=== PATIENT | male | born 1985 ===

== ENCOUNTER 2018-08-19 00:12 | Emergency (ER) | payer OTHER ==
--- NOTE | 2018-08-19 00:26 | ED PDOC ---
Arrival/HPI - General Historian: Patient, EMS - History of Present Illness Narrative History of Present Illness (Text): 08/19/18 00:49 33 y/o male with unknown PMH presents to the ED via ambulance after being found unconscious on the street. Per EMS, pt states he recently broke up with his significant other and drank beer and a full bottle of tequila tonight. Pt is unknown to this ED. ROS limited secondary to pt's AMS from presumed intoxication. <Jessica Goldberg - Last Filed: 08/19/18 02:04> <John Altamirano - Last Filed: 08/19/18 05:30> - General Time Seen by Provider: 08/19/18 00:23 Past Medical History - Provider Review Nursing Documentation Reviewed: Yes <Jessica Goldberg - Last Filed: 08/19/18 02:04> Family/Social History - Physician Review Nursing Documentation Reviewed: Yes Family/Social History: No Known Family HX <Jessica Goldberg - Last Filed: 08/19/18 02:04> Allergies/Home Meds <Jessica Goldberg - Last Filed: 08/19/18 02:04> <John Altamirano - Last Filed: 08/19/18 05:30> Allergies/Adverse Reactions: Allergies No Known Allergies Allergy (Verified 08/19/18 00:28) Home Medications: Home Meds Medication Instructions Recorded Confirmed Unobtainable 08/19/18 08/19/18 Review of Systems - Physician Review All systems were reviewed & negative as marked: Yes - Review of Systems Systems not reviewed;Unavailable: Intoxicated <Jessica Goldberg - Last Filed: 08/19/18 02:04> Physical Exam - Physical Exam Physical Exam Limitations: Intoxication Vital Signs Reviewed: Yes Temperature: Afebrile Blood Pressure: Normal Pulse: Regular Respiratory Rate: Normal Appearance: Positive for: Non-Toxic, Unkept, Other (Intoxicated) Mental Status: Positive for: other (Intoxicated) - Systems Exam Head: Present: Normocephalic, Laceration (0.5cm, horizontal, bridge of nose) Pupils: Present: PERRL Extroacular Muscles: Present: EOMI Conjunctiva: Present: Normal Ears: Present: Normal. No: Other (hemotypanum) Mouth: Present: Moist Mucous Membranes, Normal Tounge. No: Normal Lips (swollen lower lip, no laceration) Nose (External): Present: Laceration Nose (Internal): Present: No Active Bleeding, Other (Large amount of dried blood inside both nares and around mouth) Neck: Present: Normal Range of Motion Respiratory/Chest: Present: Clear to Auscultation, Good Air Exchange. No: Respiratory Distress, Accessory Muscle Use Cardiovascular: Present: Regular Rate and Rhythm, Normal S1, S2. No: Murmurs Back: Present: Normal Inspection Upper Extremity: Present: Normal Inspection, Normal ROM, NORMAL PULSES Lower Extremity: Present: Normal Inspection, NORMAL PULSES, Normal ROM Neurological: Present: Motor Func Grossly Intact Skin: Present: Warm, Dry, Normal Color, Laceration (bridge of nose). No: Rashes Psychiatric: Present: Intoxicated <Jessica Goldberg - Last Filed: 08/19/18 02:04> Vital Signs Temp Pulse Resp BP Pulse Ox 08/19/18 00:23 97.9 F 75 16 128/76 99 <John Altamirano - Last Filed: 08/19/18 05:30> Medical Decision Making ED Course and Treatment: 08/19/18 00:23 Initial Plan: * Head CT * Cervical Spine CT * Maxillofacial CT * CBC, CMP, Alcohol Level * Salicylate, Acetaminophen * UDS * EKG * CXR * PES eval once medically cleared 08/19/18 02:08 Will endorse pt to Dr. Altamirano, pending EKG, CXR, UDS, CT scans, PES lamont luation. Pt made aware of change of provider. Pt currently sleeping in stretcher soundly, stable. - Transfer of Care Patient signed out to :Sedrick Altamirano Pending Labs:: UDS, CXR, EKG Pending Radiology Studies:: CT Head, CT Cervical Spine, CT Maxillofacial Other: Possible PES Evaluation <Jessica Goldberg - Last Filed: 08/19/18 02:04> ED Course and Treatment: 08/19/18 04:33 Reviewed radiology, Chest X-ray shows no acute processes. CT Head: Normal size of the ventricles and extra-axial spaces for the patient's age. Normal white matter tracts of the supratentorial brain. Normal basal ganglia and thalami. Normal brainstem. Normal cerebellum. There is no demonstrated extra-axial, intraparenchymal, or intraventricular hemorrhage. There are no findings of an acute ischemic infarction. Normal calvarium. There is no demonstrated fracture. Normal soft tissue structures. Mild chronic mucosal inflammatory changes of the maxillary sinuses and ethmoid air cells. Normal remaining visualized paranasal sinuses. Mild right mastoid effusion. IMPRESSION: Normal unenhanced CT scan of the brain. Mild chronic mucosal inflammatory changes of the maxillary sinuses and ethmoid air cells. Mild right mastoid effusion. Electronically signed on Aug 19, 2018 4:26:31 AM EST by: Jules Bates M.D., Certified by ABR, MSK, Neuroradiology CT Maxillofacial: Acute displaced fractures of the nasal bones. Overlying soft tissue edema and swelling. Normal bilateral orbital contents. Normal bilateral medial and inferior orbital calvin. Normal bilateral maxillary bones. Normal bilateral maxillary sinuses. Normal bilateral frontozygomatic arches. Normal bilateral zygomatic temporal arches. Mild chronic mucosal inflammatory changes of the maxillary sinuses and ethmoid air cells. Mild right mastoid effusion. Impression: Acute displaced fractures of the nasal bones. Thank you for your kind referral of this patient. Electronically signed on Aug 19, 2018 4:29:32 AM EST by: Jules Bates M.D., Certified by ABR, MSK, Neuroradiology CT Cervical Spine: Normal craniovertebral junction. Normal anterior atlantoaxial articulation. Normal odontoid process. Normal cervical lordosis. Normal vertebral bodies and posterior osseous elements. C2-3: Normal endplates. Normal disc height and morphology. Normal bilateral uncovertebral and apophyseal joints. Normal central canal and intervertebral neuroforamina. C3-4: Normal endplates. Normal disc height and morphology. Normal bilateral uncovertebral and apophyseal joints. Normal central canal and intervertebral neuroforamina. C4-5: Normal endplates. Normal disc height and morphology. Normal bilateral uncovertebral and apophyseal joints. Normal central canal and intervertebral neuroforamina. C5-6: Normal endplates. Normal disc height and morphology. Normal bilateral uncovertebral and apophyseal joints. Normal central canal and intervertebral neuroforamina. C6-7: Normal endplates. Normal disc height and morphology. Normal bilateral uncovertebral and apophyseal joints. Normal central canal and intervertebral neuroforamina. C7-T1: Normal endplates. Normal disc height and morphology. Normal bilateral uncovertebral and apophyseal joints. Normal central canal and intervertebral neuroforamina. Normal visualized soft tissue structures. IMPRESSION: Normal unenhanced CT examination of the cervical spine. Electronically signed on Aug 19, 2018 4:30:46 AM EST by: Jules Bates M.D., Certified by ABR, MSK, Neuroradiology 08/19/18 07:00 Case endorsed to /pending sobriety/reassess/final disposition - Lab Interpretations Lab Results: 08/19/18 00:55 08/19/18 00:55 Lab Results 08/19/18 00:55: Alcohol, Quantitative 408 H* 08/19/18 00:55: Salicylates < 1 L, Acetaminophen < 10.0 L 08/19/18 00:55: Sodium 138, Potassium 3.4 L, Chloride 97 L, Carbon Dioxide 27, Anion Gap 18, BUN 3 L, Creatinine 0.6 L, Est GFR ( Amer) > 60, Est GFR (Non-Af Amer) > 60, Random Glucose 124 H, Calcium 9.1, Total Bilirubin 0.7, AST 100 H, ALT 81 H, Alkaline Phosphatase 85, Total Protein 7.6, Albumin 4.5, Globulin 3.0, Albumin/Globulin Ratio 1.5 08/19/18 00:55: WBC 8.5, RBC 5.06, Hgb 15.2, Hct 43.3, MCV 85.6, MCH 30.0, MCHC 35.1, RDW 12.8, Plt Count 309, MPV 9.6, Gran % 72.7 H, Lymph % (Auto) 16.9 L, [place] % (Auto) 9.4 H, Eos % (Auto) 0.4 L, Baso % (Auto) 0.6, Gran # 6.17, Lymph # (Auto) 1.4, [place] # (Auto) 0.8 H, Eos # (Auto) 0.0, Baso # (Auto) 0.05 - RAD Interpretation Radiology Orders: 08/19/18 00:32 CERVICAL SPINE W/O CONTRAST [CT] Stat HEAD W/O CONTRAST [CT] Stat MAXILLOFACIAL W/O CONTRAST [CT] Stat 08/19/18 02:04 CHEST ONE VIEW [RAD] Stat News Operations Manager: ED Physician, Radiologist - EKG Interpretation Interpreted by ED Physician: Yes Type: 12 lead EKG <John Altamirano - Last Filed: 08/19/18 05:30> - PA / FRONT DESK HOST / Resident Statement / has reviewed & agrees with the documentation as recorded. / has examined the patient and agrees with the treatment plan. <John Altamirano - Last Filed: 08/19/18 05:30> Disposition/Present on Arrival - Present on Arrival Any Indicators Present on Arrival: No History of DVT/PE: No History of Uncontrolled Diabetes: No Urinary Catheter: No History of Decub. Ulcer: No - Disposition Have Diagnosis and Disposition been Completed?: No Disposition Time: 02:00 <Jessica Goldberg - Last Filed: 08/19/18 02:04> - Present on Arrival Any Indicators Present on Arrival: No - Disposition Have Diagnosis and Disposition been Completed?: No Disposition Time: 07:00 <John Altamirano - Last Filed: 08/19/18 05:30> - Disposition Diagnosis: Alcohol intoxication, Nasal fracture Patient Problems: Current Active Problems Problem Status Onset Alcohol intoxication Acute Nasal fracture Acute Condition: STABLE
[2018-08-19 01:13] LABS: BASO # 0.05 K/mm3 (0.0-2.0); BASO % 0.6 % (0.0-3.0); EOS % 0.4 % (1.5-5.0); GRAN # 6.17 (1.4-6.5); GRAN % 72.7 % (50.0-68.0); HEMOGLOBIN 15.2 g/dL (14.0-18.0); LYMPH # 1.4 (1.2-3.4); LYMPH % 16.9 % (22.0-35.0); MEAN CELL VOLUME 85.6 fl (80.0-105.0); MEAN CORPUSCULAR HGB CONC 35.1 g/dl (31.0-37.0); MEAN PLATELET VOLUME 9.6 fl (7.0-11.0); MONO # 0.8 (0.1-0.6); MONO % 9.4 % (1.0-6.0); RBC 5.06 10^6/uL (3.5-6.1); RED CELL DISTRIBUTION WIDTH 12.8 % (11.5-14.5); WHITE BLOOD COUNT 8.5 10^3/uL (4.5-11.0)
[2018-08-19 01:25] LABS: ACETAMINOPHEN < 10.0 ug/ml (10.0-20.0); SALICYLATE < 1 mg/dL (2.0-20.0)
[2018-08-19 01:26] LABS: ALB/GLOB RATIO 1.5 (1.1-1.8); ALBUMIN 4.5 g/dL (3.0-4.8); ALT/SGPT 81 U/L (7-56); AST/SGOT 100 U/L (17-59); BLOOD UREA NITROGEN 3 mg/dL (7-21); CALCIUM 9.1 mg/dL (8.4-10.5); GFR NON-AFRICAN AMERICAN > 60
[2018-08-19 05:30] VITALS: RESP 18
--- NOTE | 2018-08-19 09:15 | CT ---
Date of service: 08/19/2018 PROCEDURE: CT HEAD WITHOUT CONTRAST. HISTORY: headache COMPARISON: None available. TECHNIQUE: Axial computed tomography images were obtained through the head/brain without intravenous contrast. Radiation dose: Total exam DLP = 930.76 mGy-cm. This CT exam was performed using one or more of the following dose reduction techniques: Automated exposure control, adjustment of the mA and/or kV according to patient size, and/or use of iterative reconstruction technique. FINDINGS: HEMORRHAGE: No intracranial hemorrhage. BRAIN: No mass effect or edema. No atrophy or chronic microvascular ischemic changes. VENTRICLES: Unremarkable. No hydrocephalus. CALVARIUM: Unremarkable. PARANASAL SINUSES: Unremarkable as visualized. No significant inflammatory changes. MASTOID AIR CELLS: Bony sclerosis and opacification of mastoid air cells on the right consistent with chronic mastoiditis OTHER FINDINGS: The report concurs with the preliminary [facility] report IMPRESSION: No acute intracranial findings. Bony sclerosis and opacification of mastoid air cells on the right consistent with chronic mastoiditis
--- NOTE | 2018-08-19 09:31 | CT ---
Date of service: 08/19/2018 PROCEDURE: CT MAXILLOFACIAL BONES WITHOUT CONTRAST HISTORY: facial injury COMPARISON: None available. TECHNIQUE: Contiguous axial CT images of the maxillofacial bones were obtained. Coronal and sagittal reformats were generated. Radiation dose: Total exam DLP = 816.99 mGy-cm. This CT exam was performed using one or more of the following dose reduction techniques: Automated exposure control, adjustment of the mA and/or kV according to patient size, and/or use of iterative reconstruction technique. FINDINGS: NASAL BONES: Minimally displaced fractures of the nasal bones ORBITS: Unremarkable. PARANASAL SINUSES/ MASTOIDS: Clear. MAXILLA: Unremarkable. MANDIBLE/ TEMPOROMANDIBULAR JOINTS: Unremarkable. SKULL BASE: Unremarkable. TEMPORAL BONES: Middle ears and mastoid grossly unremarkable. 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
--- NOTE | 2018-08-19 09:36 | CT ---
Date of service: 08/19/2018 PROCEDURE: CT Cervical Spine without contrast HISTORY: neck pain COMPARISON: None available. TECHNIQUE: Axial computed tomography images were obtained of the cervical spine without the use of intravenous contrast. Coronal and sagittal reformatted images were created and reviewed. Radiation dose: Total exam DLP = 413.82 mGy-cm. This CT exam was performed using one or more of the following dose reduction techniques: Automated exposure control, adjustment of the mA and/or kV according to patient size, and/or use of iterative reconstruction technique. FINDINGS: VERTEBRAE: No fracture. Normal alignment. No destructive bony lesion. DISCS/SPINAL CANAL/NEURAL FORAMINA: No significant central canal or neural foraminal stenosis. Discs heights are grossly preserved. PARASPINAL SOFT TISSUES: Unremarkable. 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 There is fusion of the lateral masses of C1 with the occiput. There is also fusion of the posterior elements and bodies of C2 and C3. There is severe stenosis of the upper cervical spine at the C1 level. The spinal canal measures 8 mm anterior to posterior. I agree with the [place] rad report that there is no acute finding in the cervical spine. The congenital fusion of C1 and C2 with spinal stenosis was not mentioned. IMPRESSION: No acute findings. No evidence of fracture. 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 See comments
[2018-08-19 09:43] VITALS: BP 143/102; PULSE 94; TEMP 98.9; O2SAT 98
--- NOTE | 2018-08-19 11:13 | RAD ---
Date of service: 08/19/2018 PROCEDURE: CHEST RADIOGRAPH, 1 VIEW HISTORY: pes COMPARISON: None available. FINDINGS: LUNGS: Clear. PLEURA: No pneumothorax or pleural fluid seen. CARDIOVASCULAR: Normal. OSSEOUS STRUCTURES: No significant abnormalities. VISUALIZED UPPER ABDOMEN: Normal. OTHER FINDINGS: None. IMPRESSION: No active disease.
--- NOTE | 2018-08-19 12:56 | CARD ---
APPROVED REPORT Date of service: 08/19/2018 EKG Measurement Heart [id number] <Conclusion> Normal sinus rhythm Normal ECG
== END 2018-08-19 11:15 | disposition home or self-care (01) ==
LOC: ED 00:12
DX: S02.2XXA Fracture of nasal bones, initial encounter for closed fracture (principal); X58.XXXA Exposure to other specified factors, initial encounter; F10.129 Alcohol abuse with intoxication, unspecified

== ENCOUNTER 2019-01-17 20:55 | Emergency (ER) | payer SELFPAY ==
[2019-01-17 20:59] VITALS: BMI 30.1
[2019-01-17 21:19] VITALS: RESP 18
[2019-01-17 22:10] LABS: BASO # 0.03 K/mm3 (0.0-2.0); BASO % 0.6 % (0.0-3.0); EOS # 0.2 (0.0-0.7); EOS % 3.6 % (1.5-5.0); HEMOGLOBIN 14.6 g/dL (14.0-18.0); LYMPH # 1.9 (1.2-3.4); LYMPH % 36.1 % (22.0-35.0); MEAN CELL VOLUME 86.2 fl (80.0-105.0); MEAN CORPUSCULAR HEMOGLOBIN 29.3 pg (25.0-35.0); MEAN PLATELET VOLUME 10.7 fl (7.0-11.0); MONO # 0.3 (0.1-0.6); MONO % 6.1 % (1.0-6.0); RBC 4.99 10^6/uL (3.5-6.1); RED CELL DISTRIBUTION WIDTH 13.1 % (11.5-14.5); WHITE BLOOD COUNT 5.3 10^3/uL (4.5-11.0)
[2019-01-17 22:22] LABS: ALB/GLOB RATIO 1.2 (1.1-1.8); ALBUMIN 4.2 g/dL (3.0-4.8); ALT/SGPT 18 U/L (7-56); AST/SGOT 32 U/L (17-59); BLOOD UREA NITROGEN 14 mg/dL (7-21); CALCIUM 8.9 mg/dL (8.4-10.5); GFR NON-AFRICAN AMERICAN > 60
[2019-01-17 22:26] LABS: ACETAMINOPHEN < 10.0 ug/ml (10.0-20.0); SALICYLATE < 1 mg/dL (2.0-20.0)
--- NOTE | 2019-01-18 02:23 | ED PDOC ---
Arrival/HPI - General Historian: Patient - History of Present Illness Narrative History of Present Illness (Text): 01/18/19 02:23 33 y/o male with PMH of alcohol abuse presents to the ED for public intoxication. Pt found pubically intoxicated in the parking lot of the local [employer]. Pt denies drinking today. (+) ETOH on breath. Alert and ambulating with unsteady gait. Denies any physical complaints. Denies chest pain, nausea, vomiting, abdominal pain, SOB, back pain, neck pain, falls, or any other associated symptoms HPI and ROS limited secondary to patients intoxicated state. <Jessica Goldberg - Last Filed: 01/18/19 02:25> <Jair Holguin - Last Filed: 01/18/19 06:38> - General Chief Complaint: Alcohol Ingestion Time Seen by Provider: 01/17/19 21:02 Past Medical History - Provider Review Nursing Documentation Reviewed: Yes - Infectious Disease Hx of Infectious Diseases: None - Psychiatric Hx Substance Use: No - Anesthesia Hx Anesthesia: No <Jessica Goldberg - Last Filed: 01/18/19 02:25> Family/Social History - Physician Review Nursing Documentation Reviewed: Yes Family/Social History: No Known Family HX Smoking Status: Unknown If Ever Smoked Hx Alcohol Use: Yes Hx Substance Use: No <Jessica Goldberg - Last Filed: 01/18/19 02:25> Allergies/Home Meds <Jessica Goldberg - Last Filed: 01/18/19 02:25> <Jair Holguin - Last Filed: 01/18/19 06:38> Allergies/Adverse Reactions: Allergies No Known Allergies Allergy (Verified 08/19/18 00:28) Home Medications: Home Meds Medication Instructions Recorded Confirmed Unobtainable 08/19/18 08/19/18 Review of Systems - Review of Systems Systems not reviewed;Unavailable: Intoxicated Respiratory: Normal. absent: SOB, Cough Cardiovascular: Normal. absent: Chest Pain Gastrointestinal: Normal. absent: Abdominal Pain, Nausea, Vomiting Musculoskeletal: Normal. absent: Back Pain, Neck Pain Neurological: Normal. absent: Headache, Dizziness <Jessica Goldberg - Last Filed: 01/18/19 02:25> Physical Exam - Physical Exam Physical Exam Limitations: Intoxication Vital Signs Reviewed: Yes Vital Signs Pulse Resp BP Pulse Ox 01/17/19 21:19 76 18 108/75 99 Temperature: Afebrile Blood Pressure: Normal Pulse: Regular Respiratory Rate: Normal Appearance: Positive for: Well-Appearing, Non-Toxic, Comfortable Pain Distress: None Mental Status: Positive for: Alert and Oriented X 3 Finger Stick Blood Glucose: 110 - Systems Exam Head: Present: Atraumatic, Normocephalic Pupils: Present: PERRL Extroacular Muscles: Present: EOMI Conjunctiva: Present: Normal Mouth: Present: Moist Mucous Membranes Neck: Present: Normal Range of Motion Respiratory/Chest: Present: Clear to Auscultation, Good Air Exchange. No: Respiratory Distress, Accessory Muscle Use Cardiovascular: Present: Regular Rate and Rhythm, Normal S1, S2 Abdomen: Present: Normal Bowel Sounds. No: Tenderness, Distention, Peritoneal Signs, Rebound, Guarding Back: Present: Normal Inspection Upper Extremity: Present: Normal Inspection, Normal ROM, NORMAL PULSES, Neurovascularly Intact, Capillary Refill < 2s. No: Cyanosis, Edema, Temperature Abnormalties Lower Extremity: Present: Normal Inspection, NORMAL PULSES, Normal ROM, Neurovascularly Intact, Capillary Refill < 2 s. No: Edema, Temperature Abnormalties Neurological: Present: Motor Func Grossly Intact Skin: Present: Warm, Dry, Normal Color. No: Rashes Psychiatric: Present: Alert, Intoxicated <Jessica Goldberg - Last Filed: 01/18/19 02:25> Vital Signs Pulse Resp BP Pulse Ox 01/18/19 01:00 83 18 110/62 100 01/17/19 21:19 76 18 108/75 99 <Jair Holguin - Last Filed: 01/18/19 06:38> Medical Decision Making ED Course and Treatment: Initial Plan: * CBC, CMP * Acetaminophen, Salicylate, Aclohol * UA * UDS * Fingerstick Glucose 110 Bloodwork reviewed, unremarkable. Alcohol level 348 02:00 Patient care endorsed to Dr. Holguin pending sobriety. Patient resting comfortably in stretcher, sleeping soundly with stable vitals at this time. - Lab Interpretations Lab Results: Total Bilirubin 0.2 mg/dL (0.2-1.3) 01/17/19 22:00 AST 32 U/L (17-59) 01/17/19 22:00 ALT 18 U/L (7-56) 01/17/19 22:00 Alkaline Phosphatase 91 U/L (38-126) 01/17/19 22:00 Total Protein 7.6 g/dL (5.8-8.3) 01/17/19 22:00 Albumin 4.2 g/dL (3.0-4.8) 01/17/19 22:00 Globulin 3.4 gm/dL 01/17/19 22:00 Albumin/Globulin Ratio 1.2 (1.1-1.8) 01/17/19 22:00 01/17/19 22:00 01/17/19 22:00 Lab Results 01/17/19 22:00: Alcohol, Quantitative 358 H* 01/17/19 22:00: Salicylates < 1 L, Acetaminophen < 10.0 L 01/17/19 22:00: Sodium 145, Potassium 4.1, Chloride 109 H, Carbon Dioxide 22, Anion Gap 19, BUN 14, Creatinine 0.7 L, Est GFR ( Amer) > 60, Est GFR (Non-Af Amer) > 60, Random Glucose 108, Calcium 8.9, Total Bilirubin 0.2, AST 32, ALT 18, Alkaline Phosphatase 91, Total Protein 7.6, Albumin 4.2, Globulin 3.4, Albumin/Globulin Ratio 1.2 01/17/19 22:00: WBC 5.3 D, RBC 4.99, Hgb 14.6, Hct 43.0, MCV 86.2, MCH 29.3, MCHC 34.0, RDW 13.1, Plt Count 207, MPV 10.7, Neut % (Auto) 53.6, Lymph % (Auto) 36.1 H, [place] % (Auto) 6.1 H, Eos % (Auto) 3.6, Baso % (Auto) 0.6, Lymph # (Auto) 1.9, [place] # (Auto) 0.3, Eos # (Auto) 0.2, Baso # (Auto) 0.03, Absolute Neuts (auto) 2.82 <Jessica Goldberg - Last Filed: 01/18/19 02:25> ED Course and Treatment: 01/18/19 06:37 pt is awake and alert, clear speech and steady gait, no s/s of alcohol withdrawal. stable for dc. - Lab Interpretations Lab Results: Total Bilirubin 0.2 mg/dL (0.2-1.3) 01/17/19 22:00 AST 32 U/L (17-59) 01/17/19 22:00 ALT 18 U/L (7-56) 01/17/19 22:00 Alkaline Phosphatase 91 U/L (38-126) 01/17/19 22:00 Total Protein 7.6 g/dL (5.8-8.3) 01/17/19 22:00 Albumin 4.2 g/dL (3.0-4.8) 01/17/19 22:00 Globulin 3.4 gm/dL 01/17/19 22:00 Albumin/Globulin Ratio 1.2 (1.1-1.8) 01/17/19 22:00 <Jair Holguin - Last Filed: 01/18/19 06:38> Disposition/Present on Arrival - Present on Arrival Any Indicators Present on Arrival: No History of DVT/PE: No History of Uncontrolled Diabetes: No Urinary Catheter: No History of Decub. Ulcer: No History Surgical Site Infection Following: None - Disposition Have Diagnosis and Disposition been Completed?: Yes Disposition Time: 02:00 <Jessica Goldberg - Last Filed: 01/18/19 02:25> - Disposition Disposition Time: 06:38 Patient Plan: Discharge <Jair Holguin - Last Filed: 01/18/19 06:38> - Disposition Diagnosis: Alcohol intoxication Condition: STABLE Discharge Instructions (ExitCare): Alcohol Use - When Is Drinking a Problem? Additional Instructions: seek help for your alcohol abuse.
[2019-01-18 04:40] VITALS: O2SAT 100
[2019-01-18 06:49] VITALS: BP 115/72; PULSE 81
== END 2019-01-18 06:45 | disposition home or self-care (01) ==
LOC: ED 20:55
DX: F10.129 Alcohol abuse with intoxication, unspecified (principal)
CPT/HCPCS: 80053; 85025; 99283; G0480